=== PATIENT | female | born 1960 | race Caucasian/White ===

== ENCOUNTER 2021-05-17 22:33 | Observation (INO) | payer OTHER ==
[~2021-05-17 22:33] MED LIST: LIDOCAINE PATCH REMOVAL MC SCH
[2021-05-17] MEDS ORDERED: ONDANSETRON 4 MG/2 ML VIAL IVPUSH ONE (23:50)
[2021-05-17] MEDS ORDERED: ACETAMINOPHEN 1000 MG/100 ML VIAL (NON FORMULARY) IVPB ONE (23:50)
[2021-05-17] MEDS ORDERED: LIDOCAINE 5% TOPICAL PATCH TP ONE (23:50)
[2021-05-18] MEDS: SODIUM CHLORIDE 0.9% 500 ML INFUS.BAG IV ONE ×2 (00:34→09:25)
[2021-05-18 00:45] LABS: BASO % 0.5 % (0-2.0); EOS % 1.6 % (0-4.5); HEMOGLOBIN 11.7 GM/dL (10.7-15.3); LYMPH % 28.5 % (8-40); MCH 27.1 pg (25.7-33.7); MCHC 32.6 g/dl (32.0-36.0); MEAN PLT VOLUME 7.8 fl (7.5-11.1); MONO % 6.1 % (3.8-10.2); NEUT % 63.3 % (42.8-82.8); PLATELET COUNT 282 10^3/uL (134-434); RBC 4.34 M/mm3 (3.60-5.2); RDW 12.9 % (11.6-15.6); WHITE BLOOD COUNT 11.9 K/mm3 (4.0-10.0)
[2021-05-18 00:47] LABS: EPI CELLS 2 /uL (0-25.1); HYALINE CASTS 0 /uL (0-3.1); PH,URINE 7.5 (5.0-8.0); URINE APPEARANCE CLEAR; URINE BACTERIA 14 /uL (0-1359); URINE BILIRUBIN NEGATIVE (NEGATIVE); URINE COLOR YELLOW; URINE GLUCOSE (UA) NEGATIVE (NEGATIVE); URINE KETONE NEGATIVE (NEGATIVE); URINE LEUK ESTERASE TRACE (NEGATIVE); URINE NITRITE NEGATIVE (NEGATIVE); URINE PROTEIN NEGATIVE (NEGATIVE); URINE RBC 1 /uL (0-23.9); URINE UROBILINOGEN 0.2 mg/dL (0.2-1.0); URINE WBC 2 /uL (0-25.8)
[2021-05-18 01:10] LABS: CALCIUM 8.3 mg/dL (8.5-10.1)
[2021-05-18 01:11] LABS: ALBUMIN 3.7 g/dl (3.4-5.0); BLOOD UREA NITROGEN 13.1 mg/dL (7-18)
[2021-05-18 01:13] LABS: CREATININE 0.5 mg/dL (0.55-1.3)
[2021-05-18 01:15] LABS: BILIRUBIN,TOTAL 0.3 mg/dL (0.2-1); TOT PROT 7.7 g/dl (6.4-8.2)
[2021-05-18] MEDS ORDERED: ACETAMINOPHEN 325 MG TABLET (FP) PO PRN (08:08)
[2021-05-18] MEDS ORDERED: ONDANSETRON 4 MG/2 ML VIAL IVPUSH PRN (08:12)
[2021-05-18] MEDS ORDERED: ASPIRIN 81 MG CHEWABLE TABLETS PO ONE (08:13)
[2021-05-18] MEDS ORDERED: POLYETHYLENE GLYCOL (HEALTHYLAX) 3350 17 GM PACKET ONE (09:00)
[2021-05-18] MEDS ORDERED: ASPIRIN 81 MG CHEWABLE TABLETS ONE (09:00)
[2021-05-18] MEDS ORDERED: DOCUSATE SODIUM 100 MG CAPSULE (FP) PO ONE (09:00)
[2021-05-18] MEDS ORDERED: LIDOCAINE PATCH REMOVAL MC ONE (11:00)
[2021-05-18] MEDS: SODIUM CHLORIDE 1,000 ML IV SCH (11:12)
[2021-05-18] MEDS: LEVOTHYROXINE NA 75 MCG TABLET (FP) PO SCH (11:13)
[2021-05-18] MEDS: DOCUSATE SODIUM 100 MG CAPSULE (FP) PO SCH (11:13)
[2021-05-18] MEDS: POLYETHYLENE GLYCOL (HEALTHYLAX) 3350 17 GM PACKET PO SCH (11:13)
[2021-05-18 12:38] LABS: CHOLESTEROL 193 mg/dL (50-200); HDL CHOLESTEROL 38 mg/dL (40-60); LDL CHOLESTEROL (ONLY DFH) 121 mg/dl (5-100); TRIGLYCERIDES 172 mg/dL (0-150)
[2021-05-18 21:02] VITALS: BMI 26.2
[2021-05-18] MEDS ORDERED: SENNOSIDES 8.6MG TABLET (FP) PO SCH (22:00)
[2021-05-19] MEDS: LEVOTHYROXINE NA 75 MCG TABLET (FP) PO SCH (06:32)
[2021-05-19] MEDS: SODIUM CHLORIDE 1,000 ML IV SCH ×2 (06:33→12:36)
[2021-05-19 07:53] LABS: CALCIUM 7.9 mg/dL (8.5-10.1); HEMOGLOBIN 11.8 GM/dL (10.7-15.3); MCH 27.5 pg (25.7-33.7); MCHC 32.7 g/dl (32.0-36.0); MEAN PLT VOLUME 8.4 fl (7.5-11.1); PLATELET COUNT 264 10^3/uL (134-434); RBC 4.28 M/mm3 (3.60-5.2); RDW 12.6 % (11.6-15.6); WHITE BLOOD COUNT 7.3 K/mm3 (4.0-10.0)
[2021-05-19 07:54] LABS: ALBUMIN 3.3 g/dl (3.4-5.0); BLOOD UREA NITROGEN 11.4 mg/dL (7-18); MAGNESIUM 2.5 mg/dL (1.8-2.4)
[2021-05-19 07:57] LABS: CREATININE 0.4 mg/dL (0.55-1.3); PHOSPHOROUS 4.2 mg/dL (2.5-4.9)
[2021-05-19 07:59] LABS: TOT PROT 6.8 g/dl (6.4-8.2)
[2021-05-19 08:01] LABS: BILIRUBIN,TOTAL 0.5 mg/dL (0.2-1)
[2021-05-19] MEDS ORDERED: ASPIRIN COATED 81 MG TABLET.EC PO SCH (10:00)
[2021-05-19] MEDS ORDERED: ENOXAPARIN NA (PORCINE) 40 MG/0.4 ML DISP.SYRIN SQ SCH (10:00)
[2021-05-19] MEDS: DOCUSATE SODIUM 100 MG CAPSULE (FP) PO SCH (12:36)
[2021-05-19] MEDS: POLYETHYLENE GLYCOL (HEALTHYLAX) 3350 17 GM PACKET PO SCH (12:36)
[2021-05-19 18:39] VITALS: BP 114/66; PULSE 70; TEMP 98.4
== END 2021-05-19 18:59 | disposition home or self-care (01) ==
LOC: JER 22:33 → JERBED 05-18 05:34 → INTOOBSV 05-18 05:34 → UNDOADMOB 05-18 05:34 → JERBED 05-18 08:08 → J4W 05-18 18:46
PROVIDERS: ATTEND Internal Medicine
PROC: 3E033NZ Introduction of Analgesics, Hypnotics, Sedatives into Peripheral Vein, Percutaneous Approach (ICD-10-PCS; principal; 2021-05-18)
PROC: 3E033GC Introduction of Other Therapeutic Substance into Peripheral Vein, Percutaneous Approach (ICD-10-PCS; 2021-05-18)
PROC: 3E013GC Introduction of Other Therapeutic Substance into Subcutaneous Tissue, Percutaneous Approach (ICD-10-PCS; 2021-05-18)
DX: R74.8 Abnormal levels of other serum enzymes (principal); D72.829 Elevated white blood cell count, unspecified; R10.31 Right lower quadrant pain; K21.9 Gastro-esophageal reflux disease without esophagitis; M19.90 Unspecified osteoarthritis, unspecified site; E03.9 Hypothyroidism, unspecified
CPT/HCPCS: 36415; 71046-TC-FY; 74177-TC; 78452-TC; 80053; 80061; 81003; 82550; 83036; 83605; 83690; 83735; 84100; 84443; 84484; 85025; 85027; 87086; 93005; 93010; 93017; 93306-TC; 96372; 96374; 96375; 99285-25; A9502; C9803; G0378; J0131; U0003; U0005